=== PATIENT | male | born 2000 | race African-American/Black ===

== ENCOUNTER 2022-03-18 18:21 | Emergency (ER) | payer SELFPAY | END 2022-03-18 19:11 | disposition home or self-care (01) | LOC: ERS 18:21 | DX: H69.83 Other specified disorders of Eustachian tube, bilateral (principal); F17.210 Nicotine dependence, cigarettes, uncomplicated; F17.290 Nicotine dependence, other tobacco product, uncomplicated | CPT/HCPCS: 99283 ==